=== PATIENT | male | born 1965 | race Two or more races ===

== ENCOUNTER 2022-09-22 13:56 | Outpatient (CLI) | payer OTHER | END 2022-09-22 14:43 | disposition home or self-care (01) | LOC: TOM 13:56 | PROVIDERS: ATTEND Internal Medicine | DX: R55 Syncope and collapse (principal); I63.9 Cerebral infarction, unspecified ==

== ENCOUNTER 2022-09-23 07:52 | Outpatient (CLI) | payer OTHER | END 2022-09-23 07:54 | disposition home or self-care (01) | LOC: NUCLEAR 07:52 | PROVIDERS: ATTEND Internal Medicine | DX: I65.29 Occlusion and stenosis of unspecified carotid artery (principal) ==

== ENCOUNTER 2024-04-22 09:27 | Outpatient (CLI) | payer OTHER | END 2024-04-22 09:37 | disposition home or self-care (01) | LOC: RAD 09:27 | PROVIDERS: ATTEND Internal Medicine | DX: K76.0 Fatty (change of) liver, not elsewhere classified (principal); R10.84 Generalized abdominal pain; R05.3 Chronic cough ==